=== PATIENT | male | born 1990 | race Caucasian/White ===

== ENCOUNTER 2017-04-18 12:32 | Day surgery (SDC) | payer OTHER ==
[~2017-04-18 12:32] MED LIST: ACETAMINOPHEN 1,000 MG/100 ML 100 ML IV ONE; ceFAZolin 2 GM/50 ML 2 GM/50 ML BAG IV ONE; levoFLOXacin 500 MG/100 ML 500 MG/100 ML BAG IV ONE
[2017-04-18] MEDS ORDERED: LACTATED RINGERS 1,000 ML IV ONE ×2 (13:10→16:03)
[2017-04-18] MEDS ORDERED: MIDAZOLAM 2 MG/2 ML VIAL IVP ONE (15:40)
[2017-04-18] MEDS ORDERED: fentaNYL 100 MCG/2 ML VIAL IVP ONE (15:40)
[2017-04-18] MEDS ORDERED: KETAMINE 500 MG/10 ML VIAL IVP ONE (15:40)
[2017-04-18] MEDS ORDERED: ONDANSETRON 4 MG/2 ML VIAL IVP ONE (15:40)
[2017-04-18] MEDS ORDERED: PROPOFOL 200 MG/20 ML VIAL IVP ONE (15:40)
[2017-04-18] MEDS ORDERED: LIDOCAINE-MPF 2% 5 ML VIAL IM ONE (15:40)
[2017-04-18 17:18] VITALS: BP 109/59
--- NOTE | 2017-04-21 11:42 | OPERATIVE REPORT ---
DATE OF SURGERY: 04/18/2017 00:00:00 [facility] PREOPERATIVE DIAGNOSIS: Right foot open wound. POSTOPERATIVE DIAGNOSIS: Right foot open wound. OPERATION PERFORMED: Right foot irrigation and debridement. PRIMARY SURGEON: Venecia Mcadams MD. ANESTHESIA PROVIDER: Zack Barnes CRNA. ANESTHESIA TYPE 1. Right popliteal nerve block. 2. Monitored anesthesia care. CIRCULATING NURSE: Zack Groves RN. MILL TENDER: Priti Blevins. INTRAVENOUS FLUID: 800 mL lactated Ringer's. ANTIBIOTICS 1. Ancef 2 grams IV. 2. Levofloxacin 750 mg IV. TOURNIQUET: None. SPECIMENS 1. Three culture swabs for aerobic culture. 2. A culture swab for anaerobic culture. 3. Tissue specimens for fungal culture. 4. Tissue specimens for AFB culture. IMPLANTS: None. COMPLICATIONS: None. INDICATIONS: This is a otherwise healthy male who sustained a wound to his right heel when he stepped on coral. He was initially seen at an emergency room in [place], where he had irrigation and debridement at bedside performed of his right heel. Since that time the right heel wound developed an eschar over it with a space beneath with occasional drainage concerning for infection. The risks, benefits, indications, and expectations to treatment options were discussed with the patient. Risks of surgery to include, but not limited to infection, bleeding, damage to neurovascular structures, need for additional surgery, persistent or worsened pain, deep vein thrombosis, pulmonary embolism, loss of limb, and loss of life were discussed with the patient. All questions were answered. The patient elected to proceed with surgery, and informed consent was obtained. DESCRIPTION OF OPERATIVE PROCEDURE: The patient was met in the preoperative hold area on the day of surgery, where we confirmed we had the correct patient, planned to do the correct procedure, and had the correct extremity which was the right lower extremity identified. Prior to the patient receiving any medications the operative extremity was initialed by myself. The patient, under light sedation, then had a right popliteal nerve block performed by Anesthesia. The patient was then brought back to the operating room in stable condition and placed prone onto the operating room table with all bony prominences well padded. The patient then had monitored anesthesia care performed by Anesthesia. The right lower extremity was then prepped and draped in the usual sterile fashion. After final draping, we held a surgical time-out where we confirmed that we had the correct patient, planned to do the correct procedure, had the correct extremity which was the right lower extremity identified. We also confirmed that the patient received operative medications, that all necessary gear was in the room and confirmed sterile, and that no members of the team had any concerns. We began by obtaining aerobic, anaerobic, acid-fast bacteria, and fungal culture specimens. We then began thoroughly irrigating the plantar wound, utilizing a curet to debride the inside of the wound. A total of 6 liters of sterile irrigation fluid was utilized. There was no gross contamination or purulent material noted. The depth of the wound was noted to be 2 cm with the width of the wound approximately 0.5 cm in the deep portion, although more proximally the wound was approximately 1 cm in width. After finishing irrigating the wound and debriding it of tissue, the wound was then packed with half-inch iodoform. The wound was then dressed with sterile plain gauze, Webril , and an Aubrey bandage. The patient was then [facility] and taken to phase II recovery in stable condition. All sponge counts and needle counts were correct at the conclusion of the case. POSTOPERATIVE PLAN: The patient will be on prophylactic antibiotics pending culture results, to include levofloxacin, Keflex, and doxycycline for seawater wound exposure. I will see the patient back in clinic on postoperative day one for packing change of his foot and patient education. Report edited and signed 04/21/2017 by Venecia Mcadams MD. JOB #: [id number] EXT JOB #:[id number] KIMBERLEE
== END 2017-04-18 12:33 | disposition home or self-care (01) ==
LOC: SDS 12:32
PROVIDERS: ATTEND Orthopaedic Surgery
PROC: 0JBQ0ZZ Excision of Right Foot Subcutaneous Tissue and Fascia, Open Approach (ICD-10-PCS; principal; 2017-04-18 14:15)
DX: S91.301A Unspecified open wound, right foot, initial encounter (principal)
CPT/HCPCS: 11042; 87070; 87205; J0131; J0690; J7120